=== PATIENT | male | born 1980 | race Caucasian/White ===

== ENCOUNTER 2019-11-16 01:29 | Emergency (ER) | payer OTHER ==
[~2019-11-16] VITALS: Ht 172.7 cm; Wt 88.5 kg
--- NOTE | 2019-11-16 01:31 | NUR ---
[id number]. C/O DIZZY. ADMITS TO USING METH. FOUND IN ADULT SHOP DOING INAPPROPRIATE BEHAVIOR., PT TO BED 13, -SOB, NAD NOTED, PT ON MONITOR, VSS, PENDING MD CRUZ
[2019-11-16] MEDS ORDERED: LORAZEPAM 1 MG TABLET ONE (01:56)
[2019-11-16] MEDS ORDERED: LORAZEPAM 1 MG TABLET PO ONE (02:00)
--- NOTE | 2019-11-16 05:20 | NUR ---
PT AMBULATED TO BATHROOM W/O ASSIST ON STEADY GAIT. PT WAS ALSO PROVIDED WATER PER PT REQUEST.
--- NOTE | 2019-11-16 05:37 | NUR ---
Patient discharged to home in stable condition. Written and verbal after care instructions given. Patient verbalizes understanding of instruction. Pt ambulatory with a steady gait
[2019-11-16 05:38] VITALS: BP 143/95
== END 2019-11-16 05:38 | disposition home or self-care (01) ==
LOC: ER 01:32
DX: F15.10 Other stimulant abuse, uncomplicated (principal)

== ENCOUNTER 2019-11-16 17:59 | Emergency (ER) | payer OTHER ==
[~2019-11-16] VITALS: Ht 172.7 cm; Wt 113.4 kg
[2019-11-16 18:20] VITALS: BP 145/101
--- NOTE | 2019-11-16 18:53 | NUR ---
PT REFUSE TO SIGN PAPERWORK AND CARE. MADE AWARE
== END 2019-11-16 18:54 | disposition left against medical advice (07) ==
LOC: ER 18:03
DX: F15.10 Other stimulant abuse, uncomplicated (principal); J45.909 Unspecified asthma, uncomplicated

== ENCOUNTER 2020-11-03 12:07 | Emergency (ER) | payer MEDICAID, OTHER ==
[~2020-11-03] VITALS: Ht 172.7 cm; Wt 118.4 kg
[2020-11-03] MEDS ORDERED: LORAZEPAM INJ 2 MG/ML VIAL IM ONE (12:30)
[2020-11-03] MEDS ORDERED: OLANZAPINE 10 MG VIAL IM ONE ×2 (12:30→12:31)
[2020-11-03] MEDS ORDERED: LORAZEPAM INJ 2 MG/ML VIAL ONE (12:33)
--- NOTE | 2020-11-03 12:45 | NUR ---
BIB AND [facility] TO ER BED 11 10/04. AAOX4. NOT IN RESP DISTRESS. PT IS NOTED HYPER. BROUGHT IN D/T PT HAS BEEN WALKING SINCE LAST NIGHT AND PT'S MOTHER REPORTS POSSIBLE METH USE. PT IS NOTED WITH MULTIPLE SUPERFICIAL ABRASSION ON HIS R ARM FROM WALKING THROUGHT BUSHES. PT IS ALSO NOTED WITH BILATERAL FOOT PLANTAR MACERATION FROM WALKING BAREFOOT. PT DENIED DRUG USE. WAS AT THE BEDSIDE FOR EVAL. MEDICATED ORDERED.
[2020-11-03 14:39] LABS: BASOPHILS # (AUTO) 0.1 /CMM (0.0-0.2); BASOPHILS % (AUTO) 0.5 % (0.0-2.0); HEMATOCRIT 43 % (39-51); HEMOGLOBIN 14.4 g/dL (13.5-17.5); LYMPHOCYTES % (AUTO) 6.9 % (20.0-44.0); MEAN CORPUSCULAR HGB CONC 33 g/dl (31.0-36.0); MEAN CORPUSCULAR VOLUME 88 fL (80-96); MONOCYTES # (AUTO) 1.6 /CMM (0.1-1.30); MONOCYTES % (AUTO) 10.5 % (2.0-12.0); NEUTROPHILS # (AUTO) 12.4 /CMM (1.8-8.9); NEUTROPHILS % (AUTO) 82.1 % (43.0-81.0); PLATELET COUNT (AUTO) 333 /CMM (150-450); RED BLOOD CELL COUNT(AUTO) 4.91 MIL/uL (4.5-6.0); WHITE BLOOD COUNT (AUTO) 15.1 K/uL (4.3-11.0)
[2020-11-03 14:55] LABS: ACETAMINOPHEN < 10 ug/ml (10-30); ALANINE AMINOTRANSFERASE 40 U/L (12-78); ALBUMIN 4.1 g/dL (3.4-5.0); ALCOHOL, BLOOD < 3 mg/dL (0-0); ALKALINE PHOSPHATASE 107 U/L (46-116); ASPARTATE AMINOTRANSFERASE 67 U/L (15-37); BILIRUBIN,DIRECT 0.5 mg/dL (0.0-0.2); BILIRUBIN,TOTAL 1.5 mg/dL (0.2-1.0); CALCIUM, SERUM 9.1 mg/dL (8.5-10.1); CARBON DIOXIDE 22 mmol/L (21-32); CHLORIDE 97 mmol/L (98-107); GLUCOSE 90 mg/dL (74-106); POTASSIUM 4.1 mmol/L (3.5-5.1); SODIUM SERUM 134 mmol/L (136-145); TOTAL PROTEIN, SERUM 7.7 g/dL (6.4-8.2); UREA NITROGEN, BLOOD 43 mg/dL (7-18)
--- NOTE | 2020-11-03 15:33 | NUR ---
UNABLE TO COLLECT URINE AT THIS TIME. PT CANT URINATED EARLIER. PT IS SLEEPING RIGHT NOW. AWARE. OK NOT TO COLLECT URIEN AT THIS TIME.
--- NOTE | 2020-11-03 15:39 | NUR ---
PT IN BED SLEEPING. NAD NOTED.
--- NOTE | 2020-11-03 18:30 | NUR ---
SHIMON [phone], CALL FOR ASH CONVEYOR OPERATOR.
--- NOTE | 2020-11-03 18:56 | NUR ---
PT AMBULATED TO BATHROOM.
--- NOTE | 2020-11-03 19:04 | NUR ---
SPOKE WITH NEO, PT'S MOTHER FOR PICKUP. SHE WILL BE HERE IN WITHIN THE HOUR
--- NOTE | 2020-11-03 19:23 | NUR ---
AT BEDSIDE FOR TALKING TO PT. PT REFUSED TO HAVE ANY TREATMENT DONE TO HIM. 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
[2020-11-03] MEDS ORDERED: IV NS 0.9% 1,000 ML IV ONE (19:30)
--- NOTE | 2020-11-03 19:34 | NUR ---
PT REFUSED TO BE HELPED TO CLEAN HIMSELF, PT SOILED HIMSELF.
--- NOTE | 2020-11-03 19:34 | NUR ---
Patient does not wish to proceed with medical care recommended by Jacek Rice. Patient given information related to possible complications, up to and including , which could occur as a result of leaving the hospital at this time. Patient verbalizes understanding of risks involved due to leaving against medical advice. Patient has signed AMA form.
--- NOTE | 2020-11-03 21:00 | NUR ---
Pt was picked up by her aunt and mother. They brought pt clothing for changing.
--- NOTE | 2020-11-03 21:02 | NUR ---
Pt ambulated out of the ER on steady gait without assist.
[2020-11-03 21:34] VITALS: BP 137/86
== END 2020-11-03 21:03 | disposition left against medical advice (07) ==
LOC: ER 12:11
DX: F29 Unspecified psychosis not due to a substance or known physiological condition (principal); T50.901A Poisoning by unspecified drugs, medicaments and biological substances, accidental (unintentional), initial encounter; J45.909 Unspecified asthma, uncomplicated; Y92.89 Other specified places as the place of occurrence of the external cause
CPT/HCPCS: 36415; 80048; 80076; 80299; 80320; 85025; 96372 ×2; 99284; J2060; J3490; G0480